=== PATIENT | female | born 1950 | race Caucasian/White ===

== ENCOUNTER 2024-06-06 06:06 | Day surgery (SDC) | payer MEDICARE, OTHER ==
[~2024-06-06] VITALS: Ht 170.2 cm; Wt 72.5 kg
[2024-06-06] VITALS (7 sets, daily range): BP systolic 99–117; BP diastolic 52–67; PULSE 85–104; TEMP 98.3
[2024-06-06] MEDS ORDERED: Hydrocortisone 1% Cream 30 GM TUBE TP PRN (06:45)
[2024-06-06] MEDS ORDERED: NS 1,000 ML IV SCH (06:45)
[2024-06-06] MEDS ORDERED: SENOKOT S 50 MG1 TAB PO (07:18)
[2024-06-06] MEDS ORDERED: Lidocaine PF 1% (10 MG/ML) 5 ML VIAL ONE (07:19)
[2024-06-06] MEDS ORDERED: ULTRAM 50MG TAB50 MG PO (07:20)
[2024-06-06] MEDS ORDERED: PROAMATINE 5MG T5 MG PO (07:21)
[2024-06-06] MEDS ORDERED: PROTONIX 40MG T40 MG PO (07:22)
[2024-06-06] MEDS ORDERED: CRESTOR40 MG PO (07:23)
[2024-06-06] MEDS ORDERED: K-TAB10 PO (07:23)
[2024-06-06] MEDS ORDERED: TYLENOL 325MG325 MG PO (07:24)
[2024-06-06] MEDS ORDERED: ELIQUIS 5MG PO (07:24)
[2024-06-06] MEDS ORDERED: ASPIRIN 81M81 MG/TA2 PO (07:24)
[2024-06-06] MEDS ORDERED: LEXAPRO20 MG PO (07:25)
[2024-06-06] MEDS ORDERED: VITAMIN D31000 I1 PO (07:25)
[2024-06-06] MEDS ORDERED: LASIX 40MG TABL40 MG PO (07:26)
[2024-06-06] MEDS ORDERED: NEURONTIN100 MG/CAP PO (07:27)
[2024-06-06] MEDS ORDERED: MAG-OX 400400 MG/TAB PO (07:27)
[2024-06-06] MEDS ORDERED: LIALDA 1.2 GM1.2 GM PO (07:28)
[2024-06-06 07:56] LABS: INR 1.8 (0.8-3.0); PROTHROMBIN TIME 19.3 SECONDS (9.7-12.8)
[2024-06-06 07:57] LABS: POTASSIUM 4.3 mEq/L (3.5-4.5)
--- NOTE | 2024-06-06 08:20 | NUR ---
Report from Rekha Kahn.Patient is awake and orientated,family at bedside.
--- NOTE | 2024-06-06 08:25 | NUR ---
Lianet is awake and alert, pwd with reg and unlabored respirations, and remains in SR after IVANIA/Cardioversion with DR. Todd. She is resting comfortably talking with and [id number]. BS report and handoff of care to Criss PRYOR. Please see anesthesia record and moderate sedation flowsheet in paper chart for record of this procedure.
[2024-06-06] MEDS ORDERED: PACERONE200 MG PO (08:55)
[2024-06-06 09:26] LABS: THYROID STIMULATING HORMONE 2.759 uIU/mL (0.350-4.940)
--- NOTE | 2024-06-06 10:06 | NUR ---
Discharge instructions given to pt.Pt verbalizes understanding.Pt escorted out via wheelchair by this nurse.
--- NOTE | 2024-06-06 13:17 | NUR ---
Initial visit; Radio Division Officer was called to offer prayer for Jazz prior to a 'Procedure' this morning. Radio Division Officer received the message following her 'Procedure' and said a prayer of "thanksgiving" for the successful surgical procedure and the support of her family and friends and asked God's presence for a successful and rapid recovery for Jazz.
== END 2024-06-06 13:38 ==
LOC: COL.CAR 06:06
PROVIDERS: Internal Medicine Interventional Cardiology
DX: I48.19 Other persistent atrial fibrillation (principal); D75.829 Heparin-induced thrombocytopenia, unspecified; K26.9 Duodenal ulcer, unspecified as acute or chronic, without hemorrhage or perforation; I95.1 Orthostatic hypotension; I99.8 Other disorder of circulatory system; I82.621 Acute embolism and thrombosis of deep veins of right upper extremity; I82.4Y1 Acute embolism and thrombosis of unspecified deep veins of right proximal lower extremity; Z86.73 Personal history of transient ischemic attack (TIA), and cerebral infarction without residual deficits; Z95.0 Presence of cardiac pacemaker; Z87.19 Personal history of other diseases of the digestive system; Z98.890 Other specified postprocedural states; Z79.01 Long term (current) use of anticoagulants; Z95.2 Presence of prosthetic heart valve; Z79.899 Other long term (current) drug therapy
CPT/HCPCS: J2704